=== PATIENT | male | born 1960 | race Caucasian/White ===

== ENCOUNTER 2021-11-11 00:38 | Emergency (ER) | payer BC ==
[~2021-11-11] VITALS: Ht 180.3 cm; Wt 75.0 kg
[2021-11-11] MEDS ORDERED: OXYCODONE HCL/ACETAMINOPHEN 5/325MG TABLET PO ONE (05:45)
[2021-11-11] MEDS ORDERED: KETOROLAC 15MG/ML VIAL IM ONE (05:45)
[2021-11-11] MEDS ORDERED: DEXAMETHASONE 4MG/ML 1ML VIAL IM ONE (05:45)
[2021-11-11] MEDS ORDERED: OXYC-100 PO (06:55)
[2021-11-11] MEDS ORDERED: IBUP-2028 PO (06:55)
[2021-11-11 08:05] VITALS: BP 134/51
== END 2021-11-11 08:05 | disposition home or self-care (01) ==
LOC: ER 00:38
DX: M54.9 Dorsalgia, unspecified (principal); I49.9 Cardiac arrhythmia, unspecified; X50.1XXA Overexertion from prolonged static or awkward postures, initial encounter; Y93.89 Activity, other specified; Y92.9 Unspecified place or not applicable
CPT/HCPCS: 93005; 96372; 99284; J1100; J1885

== ENCOUNTER 2022-02-04 19:53 | Emergency (ER) | payer BC ==
[~2022-02-04] VITALS: Ht 180.3 cm; Wt 86.0 kg
[~2022-02-04 19:53] MED LIST: IBUP-2028 PO; OXYC-100 PO
[2022-02-04 23:00] LABS: BASOPHILS % 0.2 % (0.0-2.0); EOSINOPHILS % 2.6 % (0.0-5.0); HEMATOCRIT. 31.4 % (42.0-52.0); HEMOGLOBIN. 10.7 g/dL (14.0-18.0); LYMPHOCYTES % 21.7 % (20.0-50.0); MEAN CORPUSCULAR HEMOGLOBIN 29.8 pg (28.0-32.0); MEAN CORPUSCULAR VOLUME 87.5 fL (80.0-94.0); MEAN PLATELET VOLUME 7.8 fl (7.4-10.4); MONOCYTES % 5.9 % (2.0-8.0); NEUTROPHILS % 69.6 % (40.0-76.0); PLATELET 157 x1000/uL (130-400); RED BLOOD CELL COUNT 3.58 mill/uL (4.7-6.1); RED CELL DISTRIBUTION WIDTH 13.9 % (11.6-14.6)
[2022-02-04 23:08] LABS: CHLORIDE 103 mEq/L (98-107)
[2022-02-05] VITALS: BP 108/78
== END 2022-02-05 | disposition home or self-care (01) ==
LOC: ER 19:53
DX: R60.9 Edema, unspecified (principal); F41.9 Anxiety disorder, unspecified; E78.00 Pure hypercholesterolemia, unspecified; I10 Essential (primary) hypertension
CPT/HCPCS: 36415; 71045; 80053; 83880; 84484; 85025; 93970; 99285